=== PATIENT | male | born 1935 | race Caucasian/White ===

== ENCOUNTER → 2016-08-29 | Outpatient (CLI) | payer OTHER ==
[~2016-08-29] MED LIST: APAP500 PO; CARDIZEM CD240 MG PO; CIPRO250 M1 PO; COUMADIN 2.5MG2.5 M1 PO; COUMADIN 5 MG TA5 M1 PO; IRON PO; KLOR-CON 1010 MEQ PO; LANOXIN 0.250.25 MG PO; LIPITOR 20 MG T20 M1 PO; LIPITOR10 MG PO; MACROBID 100 M100 M1 PO; METOPROLOL SUCC50 MG PO; POTASSIUM20 PO; PROPRANOLOL 8080 MG PO; PROPRANOLOL HCL60 M1 PO; PROPRANOLOL PO; TRAMADOL 50 MG50 MG PO; ZOCOR 20 MG TAB20 M1 PO
== END ==
LOC: ULTRA 14:30
DX: R09.89 Other specified symptoms and signs involving the circulatory and respiratory systems (principal)